=== PATIENT | male | born 1950 | race Caucasian/White ===

== ENCOUNTER 2024-09-30 11:31 | Outpatient (RCR) | payer OTHER, SELFPAY ==
--- NOTE | 2024-09-30 12:37 | PTNOTE_ITS ---
PT OP Initial Eval Patient Information Outpatient Physical Therapy Treatment Date: 09/30/24 Visit Reasons: Neck and upper back spasm Medical Diagnosis: R25.2; Neck Pain Treatment Dx #1: Neck Pain Smoking Status Smoking Status: Current some day smoker Cessation Counseling Provided: SOBIA was advised that quitting smoking is the single most important factor to protect the health of themselves and their family. Discussed the benefits of quitting smoking with patient. Encouraged patient to quit smoking and provided Cessation assistance materials and resources. Tobacco Use: Cigarette Years smoked: 20 Are you interested in quitting?: No Would you like additional Smoking Cessation Counseling?: No Initial Assessment Subjective: Pt is a 74 y/o male reports of neck pain with numbness down the hands ~ 6 months ago. No imaging has been done thus far. Pt further mention he has a rotator cuff in the left shoulder. Pt has limitation with driving, chores, self care, cooking, cleaning, and performing recreational activities. Objective: C/S AROM: all motions are 50% towards end range with pain in all plane Scapula MMTs: grossly 3-/5 Left Shoulder AROM Flexion: 80 deg Abduction: 70 deg ER and IR: unable Right Shoulder AROM: all motions are WFL Shoulder MMTs: grossly 3-/5 Palpation: TTP upper trape and levator scapulae L>R Posture: forward head posture with rounded shoulder; increase T/S kyphosis Assessment: Pt demonstrate neck pain with mobility deficits leading to difficulty with ADLs. Pt will attempt physical therapy if pain persist Pt will be refer back to provider for further consultation Short Term and Tetryl Nitrator Operator Goals 1) Increase C/S AROM WNL in 6 wks to be able to perform chores 2) Decrease neck pain to 2/10 in 6 wks to be able to sit and stand more than 30 mins 3) Increase BUE AROM WFL in 6 wks to be able to perform recreational activities 4) Increase BUE MMTs grossly to 4-/5 in 6 wks to be able to perform lifting activities 5) Indep with HEP Treatment Plan 1) Manual Therapy 2) Therapeutic Activities 3) Therapeutic Exercises 4) Modalities (ice, heat, traction) Frequency and Duration: 2 x wk for 6 wks Certification Dates: 09/30/24 to 12/31/24 Procedure Charges OP PT Eval Mod Complex 30 minutes: Yes
== END 2024-10-04 23:59 | disposition home or self-care (01) ==
LOC: CPTX 11:31
PROVIDERS: PCP Nurse Practitioner Family; Referring Provider Nurse Practitioner Family; Visit Provider Nurse Practitioner Family
DX: M54.2 Cervicalgia (principal); R20.0 Anesthesia of skin; R25.2 Cramp and spasm; Z71.6 Tobacco abuse counseling; F17.210 Nicotine dependence, cigarettes, uncomplicated
CPT/HCPCS: 97162

== ENCOUNTER 2024-10-09 14:00 | Outpatient (RCR) | payer OTHER, SELFPAY ==
--- NOTE | 2024-10-07 14:00 | PT.ODAYNRPT ---
PT Outpatient Daily Note OP Daily Note Outpatient Physical Therapy Treatment Date: 10/07/24 Visit Reasons: Neck and spasm Subjective: Pt needs to leave early due to daughter having surgery at 2:30 pm. Objective: Please see flow chart for list of ther ex performed Assessment: reports of decrease neck pain post PT session. Cues to decrease forward head posture and work on sitting posture Plan: Continue with PT Length of Time (minutes) of Treatment: 30 Minutes Procedure Charges Therapeutic Exercise 30 minutes: Yes
--- NOTE | 2024-10-09 15:13 | PTNOTE_ITS ---
PT Outpatient Daily Note OP Daily Note Outpatient Physical Therapy Treatment Date: 10/09/24 Visit Reasons: Neck and spasm Subjective: Pt reports neck is sore today but no other compalints. Objective: Please see flow sheet for ther ex list. Assessment: Pt educated on correcting static and dynamic posture, pt agreed to work on it for HEP. Plan: Continue with pOC. Length of Time (minutes) of Treatment: 30 Minutes PULVERIZER OPERATOR Service Modifier Method I: Divide the number of min of care provided by the PULVERIZER OPERATOR/PRINCIPAL SYSTEMS ARCHITECT by the total min of care provided then multiply by 100. If greater than 11 percent modifier is required. Method II: Divide the total time of care provided to patient by 10 (round to the nearest whole number) and add 1 min. to set the minimum time requirement. If treatment total was 60 min., then 10% of 6 min PT CQ modifier applied: CQ Modifier applied Procedure Charges Therapeutic Exercise 30 minutes: Yes
== END 2024-11-04 23:59 | disposition home or self-care (01) ==
LOC: CPTX 14:00
PROVIDERS: PCP Nurse Practitioner Family; Referring Provider Nurse Practitioner Family; Visit Provider Nurse Practitioner Family
DX: M54.2 Cervicalgia (principal); R20.0 Anesthesia of skin; R25.2 Cramp and spasm
CPT/HCPCS: 97110